=== PATIENT | female | born 1965 | race African-American/Black ===

== ENCOUNTER 2017-12-25 07:29 | Inpatient (IN) | payer OTHER ==
[2017-12-25] MEDS ORDERED: TRANEXAMIC ACID 1000 MG/10 ML VIAL IVPUSH ONE (07:37)
[2017-12-25] MEDS ORDERED: CEFAZOLIN 1 GM/D5W 1 GRAM/50 ML BAG IVPB ONE (07:37)
[2017-12-25] MEDS ORDERED: GABAPENTIN 300 MG CAPSULE (FP) PO ONE (07:37)
[2017-12-25] MEDS ORDERED: oxyCODONE HCL 10 MG SUSTAINED ACTING TABLET PO ONE (07:37)
--- NOTE | 2017-12-25 07:56 | HP ---
Satellite [facility] - Chief Complaint Chief Complaint: right hip pain - Past Medical History Allergies/Adverse Reactions: Allergies Allergy/AdvReac Type Severity Reaction Status Date / Time naproxen Allergy Severe Hives Verified 11/30/17 11:05 - Current Medications Current Medications: Home Medications Medication Instructions Recorded Amlodipine Besylate 10 mg PO DAILY 11/30/17 Ferrous Sulfate 325 mg PO DAILY 11/30/17 Satellite Physical Exam - Physical Examination General Appearance: Well Nourished, Well Developed, Alert & Oriented x3 ENT: Clear Lung: Normal air movement Heart: Regular rate & rhythm Extremities: Other (right hip- + ttp, decr rom, nvi xrays show grade 4 hip djd) Neurological: Intact, Alert, Oriented Satellite Impression/Plan - Impression/Plan Impression: right hip djd Operative Procedure: right florencio thr Date to be Performed: 12/25/17
[2017-12-25] MEDS ORDERED: DEXAMETHASONE SOD PHOSPHATE 4 MG/1 ML VIAL ONE (08:26)
[2017-12-25] MEDS ORDERED: ONDANSETRON 4 MG/2 ML VIAL ONE (08:26)
[2017-12-25] MEDS ORDERED: MIDAZOLAM HCL 2 MG/2 ML SINGLE DOSE VIAL ONE ×3 (08:30→11:50)
[2017-12-25] MEDS ORDERED: KETOROLAC TROMETHAMINE 30 MG/1 ML VIAL ONE (08:45)
[2017-12-25] MEDS ORDERED: ceFAZolin SODIUM 1 GM VIAL ONE ×2 (08:47→10:08)
[2017-12-25] MEDS ORDERED: SODIUM CHLORIDE 0.9% P/F 10 ML VIAL IJ ONE (08:47)
[2017-12-25 08:48] VITALS: BMI 28.4
[2017-12-25] MEDS ORDERED: oxyCODONE HCL 5 MG TABLET PO PRN (09:55)
[2017-12-25] MEDS ORDERED: ONDANSETRON 4 MG/2 ML VIAL IVPUSH PRN ×2 (09:55→12:16)
[2017-12-25] MEDS ORDERED: DEXAMETHASONE SOD PHOSPHATE/PF 10 MG/ML SDV ONE (09:59)
[2017-12-25] MEDS ORDERED: LACTATED RINGERS SOLUTION 1,000 ML IV SCH ×2 (10:00→12:30)
[2017-12-25] MEDS ORDERED: VANCOMYCIN 1,000 MG VIAL (RESTRICTED TO ID ONLY) ONE (10:08)
[2017-12-25] MEDS ORDERED: ePHEDrine SULFATE 50 MG/1 ML AMPULE ONE (11:08)
[2017-12-25] MEDS ORDERED: TRANEXAMIC ACID 1000 MG/10 ML VIAL ONE (11:12)
[2017-12-25] MEDS ORDERED: MAG HYDROX/AL HYDROX/SIMETH 30 ML UNIT-DOSE CUP PO PRN (12:16)
[2017-12-25] MEDS ORDERED: MAGNESIUM HYDROX 2400MG/30ML ORAL SUSPENSION 30 ML CUP PO PRN (12:16)
--- NOTE | 2017-12-25 12:18 | OP ---
Operative Note - Note: Operative Date: 12/25/17 (seymour) Pre-Operative Diagnosis: right hip djd Operation: right florencio thr Post-Operative Diagnosis: Same as Pre-op Surgeon: Andres Frey Keno Terminal Operator: Franki Abbasi Anesthesiologist/PEARL PELLER: Júnior Gallo Anesthesia: Spinal, Local Specimens Removed: femoral head Estimated Blood Loss (mls): 100 Operative Report Dictated: Yes
--- NOTE | 2017-12-25 13:32 | SPEC ---
DATE OF OPERATION: 12/25/2017 PREOPERATIVE DIAGNOSIS: Degenerative joint disease right hip. POSTOPERATIVE DIAGNOSIS: Degenerative joint disease right hip. PROCEDURE PERFORMED: Right total hip replacement with robotic-assisted navigation (MAKOplasty). SURGICAL ATTENDING: Juani Frey MD TIRE AND TUBE REPAIRER: ASHUTOSH Medina ANESTHESIA: Regional and spinal. CLOSURE: PSL Press-Fit Acetabulum, a 32-mm ceramic +4 head, and a number 7 Accolade II Press-Fit stem; number 1 Vicryl for the capsule and fascia, 0-Vicryl and 2-0 Vicryl for subcutaneous, 3-0 V-Loc 90 for skin with skin glue, 4-0 undyed Vicryl for pin sites. ESTIMATED BLOOD LOSS: Less than 100 mL. COMPLICATIONS: None. CONDITION: To the recovery room in stable condition. DESCRIPTION OF PROCEDURE: The patient was taken to the operating room on December 25, 2017. General and regional anesthesia was administered by the anesthesiologist. IV Kefzol and TXA were administered prophylactically prior to the case. The patient was placed in the lateral decubitus position will all prominences well-padded. The right hip area was prepped and draped in the usual sterile fashion. Using 3 small stab incisions over the iliac crest, 3 threaded pins were drilled in power fashion through the 2 tables of the crest. These pins were fastened and the navigation array for the Claude navigation system. Next, a 12 to 15-cm curved longitudinal incision over the posterolateral aspect of the greater trochanter was incised. Hemostasis was achieved with Bovie cautery. Sharp dissection was carried down to level of the fascia. The fascia was opened the entire length of the incision, spreading the fibers of the gluteus chris in the direction of origin. A Charnley retractor was placed in this layer. Care was taken not to impale the sciatic nerve. The short external rotators were detached off the insertion of the greater trochanter and peeled off the capsule. A posterior capsulotomy was then performed. A check point was malleted into the greater trochanter and a point on the inferior pole of the patella was obtained as well. These 2 points were used to assess the preoperative offset and limb lengths of the hip. The hip was then dislocated. The femoral neck was then osteotomized down to the appropriate level as directed by the navigation device. Anterior and posterior retractors were placed, exposing the acetabulum. A circumferential labral excision was performed. A check point was malleted into the acetabulum as well. Multiple sites inside the acetabulum and around the rim were utilized to register the acetabulum with the navigation device. An excellent registration of less than 0.5 mm was obtained. The hip was then reamed with the appropriate reamer down to the appropriate depth, with the appropriate orientation and version as assessed on our preoperative plan for this patient. The reamer was removed and the acetabulum was inspected to have good bleeding surfaces throughout. The real acetabular cup was then malleted down into place, with the holes in the appropriate position, until an excellent fixation was obtained. No screws were necessary. The navigation device ensured appropriate orientation and version, with the depth as predetermined. The appropriate liner was then clipped into place. Attention was directed to the femur. The proximal femur was prepared by use a box chisel, a canal finder and serial broaches until the broach achieved excellent rigidity in the proximal femur with the appropriate version being applied. A calcar planer was used to smooth off the calcar flush with the trial components. A trial reduction with the appropriate head was done, and the hip was reduced. The hip was taken through a range of motion from full extension with external rotation to marked flexion, and was stable at 90 degrees of flexion. It was stable to marked abduction and internal rotation, with a positive hang test and negative telescoping. Limb lengths were ascertained visually as well as with the navigation device to be within the targeted range for this patient. The trial component was removed. The real component was then malleted into place. The head was cold welded to the trunnion, and the hip was reduced. Range of motion, stability and limb lengths were as described in the trial component. Then the hip was pulse antibiotic irrigated. Vancomycin powder was placed in the hip joint. The capsule was closed. The fascia was then closed as well using number 1 Vicryl interrupted suture, 0 and 2-0 subcutaneous, and 3-0 V-Loc for the skin. 4-0 undyed Vicryl was used to close the pin sites after the pins were removed. All check points were also removed. Sterile Aquacel dressing was applied. The patient was awakened from anesthesia and transferred into the supine position. Bilateral SCDs and an abduction pillow were placed. X-rays revealed excellent position of the components. The patient was transferred to the recovery room in stable condition, with no complications. Estimated blood loss was less than 100 mL. JUANI FREY M.D. [id number]
[2017-12-25] MEDS ORDERED: oxyCODONE HCL 5 MG TABLET ONE (14:42)
[2017-12-25] MEDS: ACETAMINOPHEN 325 MG TABLET (FP) PO SCH ×3 (15:13→21:59)
[2017-12-25] MEDS: CEFAZOLIN 1 GM/D5W 1 GM/50 ML BAG IVPB SCH (17:02)
[2017-12-25] MEDS: oxyCODONE HCL 5 MG TABLET PO PRN ×2 (17:03→20:50)
[2017-12-25] MEDS ORDERED: HYDROmorphone HCL CARPU-JECT 2 MG/1 ML DISP.SYRIN IVPB PRN (17:18)
[2017-12-25] MEDS ORDERED: KETOROLAC TROMETHAMINE 30 MG/1 ML VIAL IVPUSH ONE (17:18)
[2017-12-25] MEDS ORDERED: ACETAMINOPHEN 1000 MG/100 ML VIAL (NON FORMULARY) IVPB ONE (17:30)
[2017-12-25] MEDS: oxyCODONE HCL 10 MG SUSTAINED ACTING TABLET PO SCH (21:58)
[2017-12-25] MEDS: SENNOSIDES/DOCUSATE COMBO (SENNA PLUS) TABLET (UD) PO SCH (21:59)
[2017-12-26] MEDS: oxyCODONE HCL 5 MG TABLET PO PRN ×3 (00:19→23:03)
[2017-12-26] MEDS: CEFAZOLIN 1 GM/D5W 1 GM/50 ML BAG IVPB SCH (02:02)
[2017-12-26 08:03] LABS: HEMATOCRIT 31.2 % (32.4-45.2); HEMOGLOBIN 10.4 GM/dl (10.7-15.3); MCH 28.1 pg (25.7-33.7); MCHC 33.2 g/dl (32.0-36.0); MEAN CELL VOLUME 84.6 fl (80-96); MEAN PLT VOLUME 7.1 fl (7.5-11.1); PLATELET COUNT 323 K/MM3 (134-434); RBC 3.68 M/mm3 (3.60-5.2); RDW 13.1 % (11.6-15.6); WHITE BLOOD COUNT 13.2 K/mm3 (4.0-10.8)
[2017-12-26] MEDS: PANTOPRAZOLE 40 MG TABLET (FP) PO SCH (09:12)
[2017-12-26] MEDS: MULTIVITAMINS (DAILY MVI) TABLET (FP) PO SCH (09:12)
[2017-12-26] MEDS: SENNOSIDES/DOCUSATE COMBO (SENNA PLUS) TABLET (UD) PO SCH ×2 (09:13→21:33)
[2017-12-26] MEDS: oxyCODONE HCL 10 MG SUSTAINED ACTING TABLET PO SCH ×2 (09:13→21:32)
[2017-12-26] MEDS: amLODIPine BESYLATE 10 MG TABLET (FP) PO SCH (09:15)
[2017-12-26] MEDS: ACETAMINOPHEN 325 MG TABLET (FP) PO SCH ×4 (09:16→21:32)
[2017-12-26] MEDS: ASPIRIN 325 MG TABLET PO SCH (09:16)
[2017-12-26] MEDS: FERROUS SO4 325 MG TABLET (FP) PO SCH (09:16)
[2017-12-26] MEDS ORDERED: PATIENT'S OWN MEDICATION (NON-FORMULARY) (Ferrous Sulfate [Ferrous Sulfate] 325 MG) PO SCH (10:00)
[2017-12-27] MEDS: oxyCODONE HCL 5 MG TABLET PO PRN ×5 (04:28→20:00)
[2017-12-27] MEDS: ACETAMINOPHEN 325 MG TABLET (FP) PO SCH ×4 (04:28→20:34)
[2017-12-27] MEDS: ASPIRIN 325 MG TABLET PO SCH (08:42)
--- NOTE | 2017-12-27 09:46 | PN ---
Progress Note (short form) - Note Progress Note: AVSS COMFORTABLE BANDAGES DRY AND INTACT CALF SOFT AND NT IMP: DOING WELL PLAN: DC TO HOME TODAY, F/U IN MY OFFICE X 1 WEEK
[2017-12-27] MEDS: amLODIPine BESYLATE 10 MG TABLET (FP) PO SCH (09:58)
[2017-12-27] MEDS: FERROUS SO4 325 MG TABLET (FP) PO SCH (09:58)
[2017-12-27] MEDS: SENNOSIDES/DOCUSATE COMBO (SENNA PLUS) TABLET (UD) PO SCH (09:59)
[2017-12-27] MEDS: PANTOPRAZOLE 40 MG TABLET (FP) PO SCH (09:59)
[2017-12-27] MEDS: oxyCODONE HCL 10 MG SUSTAINED ACTING TABLET PO SCH ×2 (09:59→20:32)
[2017-12-27] MEDS: MULTIVITAMINS (DAILY MVI) TABLET (FP) PO SCH (09:59)
[2017-12-27 14:48] VITALS: BP 116/64; PULSE 78; TEMP 98.8
--- NOTE | 2017-12-31 11:51 | PATH ---
Surgical Pathology Report Patient Name: CINDI BAXTER Med. Rec. #: [id number] /Age/Gender: 1965 (Age: 52) / F Account: [id number] Location: [facility] MED-SURG Taken: 12/25/2017 Received: 12/25/2017 Reported: 12/31/2017 Physicians: Andres Frey M.D. Specimen(s) Received RIGHT FEMORAL HEAD Clinical History Osteoarthritis Final Diagnosis FEMORAL HEAD, RIGHT, TOTAL HIP REPLACEMENT: DEGENERATIVE JOINT DISEASE. Electronically Signed Shruthi Nelson M.D. Gross Description Received in formalin, labeled "right femoral head," is a 4.0 x 4.0 x 2.8 cm. femoral head with a 1.4 cm length portion of femoral neck attached. The margin of resection is smooth. No areas of eburnation are identified. The articular surface is elder-yellow and focally granular. The underlying trabecular bone is yellow and hard. A community service representative section is submitted in one cassette, following decalcification. 12/29/201712/29/2017
== END 2017-12-27 20:15 | disposition home health service (06) | DRG 470 ==
LOC: FM/S 07:29
PROVIDERS: ADMIT Orthopaedic Surgery; ATTEND Orthopaedic Surgery
PROC: 8E0Y0CZ Robotic Assisted Procedure of Lower Extremity, Open Approach (ICD-10-PCS; 2017-12-25)
PROC: 0SR90JA Replacement of Right Hip Joint with Synthetic Substitute, Uncemented, Open Approach (ICD-10-PCS; principal; 2017-12-25 11:18)
DX: M16.11 Unilateral primary osteoarthritis, right hip (principal)
CPT/HCPCS: 36415; 73523-TC-FY; 85027; 88304-TC; 88311-TC; 94760; 97116-GP; 97161-GP

== ENCOUNTER 2018-03-26 06:17 | Inpatient (IN) | payer OTHER ==
[2018-03-23 14:23] VITALS: BMI 28.6
[2018-03-26] MEDS ORDERED: SUCCINYLCHOLINE CHLORIDE 200 MG/10 ML VIAL ONE (06:39)
[2018-03-26] MEDS ORDERED: TRANEXAMIC ACID 1000 MG/10 ML VIAL IVPUSH ONE (07:12)
[2018-03-26] MEDS ORDERED: GABAPENTIN 300 MG CAPSULE (FP) PO ONE (07:12)
[2018-03-26] MEDS ORDERED: CEFAZOLIN 1 GM/D5W 1 GM/50 ML BAG IVPB ONE (07:12)
[2018-03-26] MEDS ORDERED: oxyCODONE HCL 10 MG SUSTAINED ACTING TABLET PO ONE (07:12)
--- NOTE | 2018-03-26 07:56 | HP ---
[facility]ellite [facility] - Chief Complaint Chief Complaint: left hip pain - Past Medical History Allergies/Adverse Reactions: Allergies Allergy/AdvReac Type Severity Reaction Status Date / Time naproxen Allergy Severe Hives Verified 03/26/18 07:53 ...LMP Comment: 2001 - Current Medications Current Medications: Home Medications Medication Instructions Recorded Amlodipine Besylate 10 mg PO DAILY 11/30/17 Aspirin/Omeprazole [Yosprala Dr 1 each PO DAILY 03/23/18 81-40 mg Tablet] Diclofenac Sodium [Solaraze] 100 gm TP ASDIR PRN 03/23/18 Tramadol HCl 50 mg PO ASDIR PRN 03/23/18 Satellite Physical Exam - Physical Examination General Appearance: Well Nourished, Well Developed, Alert & Oriented x3 ENT: Clear Lung: Normal air movement Heart: Regular rate & rhythm Extremities: Other (left hip- + ttp, decr rom, nvi xrays show grade 4 hip djd) Neurological: Intact, Alert, Oriented Satellite Impression/Plan - Impression/Plan Impression: left hip djd Operative Procedure: left florencio thr Date to be Performed: 03/26/18
[2018-03-26] MEDS ORDERED: ONDANSETRON 4 MG/2 ML VIAL IVPUSH PRN ×2 (08:18→11:14)
[2018-03-26] MEDS ORDERED: oxyCODONE HCL 5 MG TABLET PO PRN (08:18)
[2018-03-26] MEDS ORDERED: LACTATED RINGERS SOLUTION 1,000 ML IV SCH ×2 (08:30→11:15)
[2018-03-26] MEDS ORDERED: LIDOCAINE 1% P/F 10 MG/ML VIAL ONE (08:52)
[2018-03-26] MEDS ORDERED: TRANEXAMIC ACID 1000 MG/10 ML VIAL ONE (09:11)
[2018-03-26] MEDS ORDERED: ceFAZolin SODIUM 1 GM VIAL ONE (09:11)
[2018-03-26] MEDS ORDERED: SODIUM CHLORIDE 0.9% P/F 10 ML VIAL IJ ONE (09:11)
[2018-03-26] MEDS ORDERED: PROPOFOL 20 ML ONE ×2 (09:14→10:11)
[2018-03-26] MEDS ORDERED: VANCOMYCIN 1,000 MG VIAL (RESTRICTED TO ID ONLY) IVPB ONE (09:26)
[2018-03-26] MEDS ORDERED: ceFAZolin SODIUM 1 GM VIAL IVPB ONE (09:27)
[2018-03-26] MEDS ORDERED: ePHEDrine SULFATE 50 MG/1 ML AMPULE ONE (10:00)
[2018-03-26] MEDS ORDERED: MAG HYDROX/AL HYDROX/SIMETH 30 ML UNIT-DOSE CUP PO PRN (11:14)
[2018-03-26] MEDS ORDERED: MAGNESIUM HYDROX 2400MG/30ML ORAL SUSPENSION 30 ML CUP PO PRN (11:14)
--- NOTE | 2018-03-26 11:16 | OP ---
Operative Note - Note: Operative Date: 03/26/18 (seymour) Pre-Operative Diagnosis: left hip djd Operation: left florencio thr Post-Operative Diagnosis: Same as Pre-op Surgeon: Andres Frey Pneumatic Press Hand: Franki Abbasi Anesthesiologist/STENCIL CUTTER: Júnior Gallo Anesthesia: Spinal, Local Specimens Removed: femoral head Estimated Blood Loss (mls): 100 Operative Report Dictated: Yes
[2018-03-26] MEDS ORDERED: ACETAMINOPHEN 325 MG TABLET (FP) ONE (12:07)
[2018-03-26] MEDS ORDERED: ACETAMINOPHEN 325 MG TABLET (FP) PO ONE (12:11)
[2018-03-26] MEDS: oxyCODONE HCL 5 MG TABLET PO PRN (15:00)
[2018-03-26] MEDS: ACETAMINOPHEN 325 MG TABLET (FP) PO SCH ×2 (15:00→20:10)
[2018-03-26] MEDS: CEFAZOLIN 2 GM/D5W 2 GM/50 ML ML IVPB SCH (18:48)
[2018-03-26] MEDS: SENNOSIDES/DOCUSATE COMBO (SENNA PLUS) TABLET (UD) PO SCH (21:17)
[2018-03-26] MEDS: oxyCODONE HCL 10 MG SUSTAINED ACTING TABLET PO SCH (21:18)
[2018-03-27] MEDS: oxyCODONE HCL 5 MG TABLET PO PRN ×5 (01:13→23:31)
[2018-03-27] MEDS: ACETAMINOPHEN 325 MG TABLET (FP) PO SCH ×5 (03:15→21:06)
[2018-03-27] MEDS: CEFAZOLIN 2 GM/D5W 2 GM/50 ML ML IVPB SCH (03:19)
[2018-03-27 08:49] LABS: HEMATOCRIT 33.8 % (32.4-45.2); HEMOGLOBIN 10.8 GM/dl (10.7-15.3); MCH 26.6 pg (25.7-33.7); MCHC 32.1 g/dl (32.0-36.0); MEAN CELL VOLUME 82.8 fl (80-96); MEAN PLT VOLUME 7.8 fl (7.5-11.1); PLATELET COUNT 318 K/MM3 (134-434); RBC 4.08 M/mm3 (3.60-5.2); RDW 13.7 % (11.6-15.6); WHITE BLOOD COUNT 13.6 K/mm3 (4.0-10.8)
[2018-03-27] MEDS: oxyCODONE HCL 10 MG SUSTAINED ACTING TABLET PO SCH ×3 (09:31→21:07)
[2018-03-27] MEDS: ASPIRIN 325 MG TABLET PO SCH (09:31)
[2018-03-27] MEDS: SENNOSIDES/DOCUSATE COMBO (SENNA PLUS) TABLET (UD) PO SCH ×2 (09:31→21:06)
[2018-03-27] MEDS: PANTOPRAZOLE 40 MG TABLET (FP) PO SCH (09:31)
[2018-03-27] MEDS: amLODIPine BESYLATE 10 MG TABLET (FP) PO SCH (09:33)
[2018-03-27] MEDS: MULTIVITAMINS (DAILY MVI) TABLET (FP) PO SCH (09:34)
[2018-03-28] MEDS: ACETAMINOPHEN 325 MG TABLET (FP) PO SCH ×3 (02:07→15:47)
[2018-03-28] MEDS: oxyCODONE HCL 5 MG TABLET PO PRN ×4 (06:26→15:15)
[2018-03-28 06:37] VITALS: BP 117/93; PULSE 87; TEMP 98.2
[2018-03-28] MEDS: ASPIRIN 325 MG TABLET PO SCH (08:00)
[2018-03-28] MEDS: amLODIPine BESYLATE 10 MG TABLET (FP) PO SCH (09:23)
[2018-03-28] MEDS: SENNOSIDES/DOCUSATE COMBO (SENNA PLUS) TABLET (UD) PO SCH (09:24)
[2018-03-28] MEDS: oxyCODONE HCL 10 MG SUSTAINED ACTING TABLET PO SCH (09:24)
[2018-03-28] MEDS: PANTOPRAZOLE 40 MG TABLET (FP) PO SCH (09:24)
[2018-03-28] MEDS: MULTIVITAMINS (DAILY MVI) TABLET (FP) PO SCH (09:24)
[2018-03-28 09:42] LABS: HEMATOCRIT 31.3 % (32.4-45.2); HEMOGLOBIN 10.2 GM/dl (10.7-15.3); MCH 26.8 pg (25.7-33.7); MCHC 32.6 g/dl (32.0-36.0); MEAN PLT VOLUME 7.9 fl (7.5-11.1); PLATELET COUNT 306 K/MM3 (134-434); RBC 3.82 M/mm3 (3.60-5.2); RDW 13.7 % (11.6-15.6); WHITE BLOOD COUNT 9.7 K/mm3 (4.0-10.8)
--- NOTE | 2018-03-30 16:27 | PATH ---
Surgical Pathology Report Patient Name: CINDI BAXTER Med. Rec. #: [id number] /Age/Gender: 1965 (Age: 52) / F Account: [id number] Location: [facility] MED-SURG Taken: 03/26/2018 Received: 03/26/2018 Reported: 03/30/2018 Physicians: Andres Frey M.D. Specimen(s) Received LEFT FEMORAL HEAD Clinical History Osteoarthritis left hip Final Diagnosis BONE, FEMORAL HEAD, LEFT, TOTAL HIP REPLACEMENT MAKOPLASTY: BONE WITH DEGENERATIVE JOINT DISEASE, DENSE FIBROCONNECTIVE TISSUE, AND REACTIVE SYNOVIUM. Electronically Signed Janet Whatley M.D. Gross Description Received in formalin labeled "left femoral head," is a 5.5 x 4.5 x 4.0 cm femoral head. There are areas of eburnation present. The remaining articular surfaces are elder-yellow and focally granular. The underlying trabecular bone is yellow and hard. Belt Molder sections are submitted in one cassette, following decalcification. ROE/03/29/2018 nain/03/29/2018
--- NOTE | 2018-04-12 19:48 | SPEC ---
DATE OF OPERATION: 03/26/2018 PREOPERATIVE DIAGNOSIS: Degenerative joint disease left hip. POSTOPERATIVE DIAGNOSIS: Degenerative joint disease left hip. PROCEDURE PERFORMED: Left total hip replacement with robotic-assisted navigation (MAKOplasty). SURGICAL ATTENDING: Juani Frey MD GRADUATE STUDIES DEAN: ASHUTOSH Medina ANESTHESIA: Regional and spinal. CLOSURE: A Tiarra total hip Press-Fit hip system of appropriate size. Closure is 0 Vicryl fascia, 2-0 subcutaneous, and 3-0 Monocryl subcuticular with skin glue for skin, 4-0 undyed Vicryl for pin sites. ESTIMATED BLOOD LOSS: 100 mL COMPLICATIONS: None. CONDITION: To the recovery room in stable condition. DESCRIPTION OF PROCEDURE: The patient was taken to the operating room on March 26, 2018. General and regional anesthesia was administered by the anesthesiologist. IV Kefzol and TXA were administered prophylactically prior to the case. The patient was placed in the lateral decubitus position will all prominences well-padded. The left hip area was prepped and draped in the usual sterile fashion. Using 3 small stab incisions over the iliac crest, 3 threaded pins were drilled in power fashion through the 2 tables of the crest. These pins were fastened and the navigation array for the Claude navigation system. Next, a 12 to 15-cm curved longitudinal incision over the posterolateral aspect of the greater trochanter was incised. Hemostasis was achieved with Bovie cautery. Sharp dissection was carried down to level of the fascia. The fascia was opened the entire length of the incision, spreading the fibers of the gluteus chris in the direction of origin. A Charnley retractor was placed in this layer. Care was taken not to impale the sciatic nerve. The short external rotators were detached off the insertion of the greater trochanter and peeled off the capsule. A posterior capsulotomy was then performed. A check point was malleted into the greater trochanter and a point on the inferior pole of the patella was obtained as well. These 2 points were used to assess the preoperative offset and limb lengths of the hip. The hip was then dislocated. The femoral neck was then osteotomized down to the appropriate level as directed by the navigation device. Anterior and posterior retractors were placed, exposing the acetabulum. A circumferential labral excision was performed. A check point was malleted into the acetabulum as well. Multiple sites inside the acetabulum and around the rim were utilized to register the acetabulum with the navigation device. An excellent registration of less than 0.5 mm was obtained. The hip was then reamed with the appropriate reamer down to the appropriate depth, with the appropriate orientation and version as assessed on our preoperative plan for this patient. The reamer was removed and the acetabulum was inspected to have good bleeding surfaces throughout. The real acetabular cup was then malleted down into place, with the holes in the appropriate position, until an excellent fixation was obtained. No screws were necessary. The navigation device ensured appropriate orientation and version, with the depth as predetermined. The appropriate liner was then clipped into place. Attention was directed to the femur. The proximal femur was prepared by use a box chisel, a canal finder and serial broaches until the broach achieved excellent rigidity in the proximal femur with the appropriate version being applied. A calcar planer was used to smooth off the calcar flush with the trial components. A trial reduction with the appropriate head was done, and the hip was reduced. The hip was taken through a range of motion from full extension with external rotation to marked flexion, and was stable at 90 degrees of flexion. It was stable to marked abduction and internal rotation, with a positive hang test and negative telescoping. Limb lengths were ascertained visually as well as with the navigation device to be within the targeted range for this patient. The trial component was removed. The real component was then malleted into place. The head was cold welded to the trunnion, and the hip was reduced. Range of motion, stability and limb lengths were as described in the trial component. Then the hip was pulse antibiotic irrigated. Vancomycin powder was placed in the hip joint. The capsule was closed. The fascia was then closed as well using number 0 Vicryl, 2-0 subcutaneous, and 3-0 Monocryl subcuticular with skin glue for skin. 4-0 undyed Vicryl was used to close the pin sites after the pins were removed. All check points were also removed. Sterile Aquacel dressing was applied. The patient was awakened from anesthesia and transferred into the supine position. Bilateral SCDs and an abduction pillow were placed. X-rays revealed excellent position of the components. The patient was transferred to the recovery room in stable condition, with no complications. Estimated blood loss was 100 mL. UJANI FREY M.D. [id number]
== END 2018-03-28 17:00 | disposition home health service (06) | DRG 470 ==
LOC: FM/S 06:17
PROVIDERS: ADMIT Orthopaedic Surgery; ATTEND Orthopaedic Surgery
PROC: 8E0Y0CZ Robotic Assisted Procedure of Lower Extremity, Open Approach (ICD-10-PCS; 2018-03-26)
PROC: 0SRB0JA Replacement of Left Hip Joint with Synthetic Substitute, Uncemented, Open Approach (ICD-10-PCS; principal; 2018-03-26 09:30)
DX: M16.12 Unilateral primary osteoarthritis, left hip (principal)
CPT/HCPCS: 36415; 73523-TC-FY; 85027; 86803; 87389; 88304-TC; 88311-TC; 94760; 97116-GP; 97161-GP

== ENCOUNTER → 2020-12-05 | Day surgery (SDC) | payer OTHER | END | disposition home or self-care (01) | LOC: JMAMMO-SUR 11:27 → MERGE 11:27 | PROVIDERS: ATTEND Family Medicine | PROC: 0H9U3ZX Drainage of Left Breast, Percutaneous Approach, Diagnostic (ICD-10-PCS; principal; 2020-12-05) | DX: D05.12 Intraductal carcinoma in situ of left breast (principal); Z17.0 Estrogen receptor positive status [ER+] | CPT/HCPCS: 19083; 77065-TC; 87899; A4648 ==

== ENCOUNTER → 2020-12-20 | Day surgery (SDC) | payer OTHER | END | disposition home or self-care (01) | LOC: FMAMMOTONE 10:22 | PROVIDERS: ATTEND Family Medicine | PROC: 0H9U3ZX Drainage of Left Breast, Percutaneous Approach, Diagnostic (ICD-10-PCS; principal; 2020-12-20) | DX: D05.12 Intraductal carcinoma in situ of left breast (principal) | CPT/HCPCS: 19081; 76098-TC-FY; 87899; 88305-TC; A4648 ==

== ENCOUNTER 2021-03-05 05:26 | Day surgery (SDC) | payer OTHER ==
[2021-02-28 12:54] VITALS: BMI 35.5
[2021-03-05] MEDS ORDERED: LIDOCAINE HCL 1%, 10 MG/ML (20ML VIAL) ONE (14:49)
[2021-03-05] MEDS ORDERED: BUPIVACAINE HCL 50 ML ONE (14:49)
[2021-03-05] MEDS ORDERED: PROPOFOL 20 ML ONE (15:25)
[2021-03-05] MEDS ORDERED: ceFAZolin SODIUM 1 GM VIAL ONE (15:25)
[2021-03-05] MEDS ORDERED: DEXAMETHASONE SOD PHOSPHATE 4 MG/1 ML VIAL ONE (15:25)
[2021-03-05] MEDS ORDERED: MIDAZOLAM HCL 2 MG/2 ML SINGLE DOSE VIAL ONE (15:26)
[2021-03-05] MEDS ORDERED: ONDANSETRON 4 MG/2 ML VIAL IVPUSH PRN (15:40)
[2021-03-05] MEDS ORDERED: oxyCODONE HCL 5 MG TABLET PO PRN ×2 (15:40)
[2021-03-05] MEDS ORDERED: LACTATED RINGERS SOLUTION 1,000 ML IV SCH (15:45)
[2021-03-05] MEDS ORDERED: ISOSULFAN BLUE 50 MG/5 ML VIAL SQ ONE (15:47)
[2021-03-05] MEDS ORDERED: ceFAZolin SODIUM 1 GM VIAL IVPB ONE (16:05)
[2021-03-05 19:11] VITALS: BP 148/70; PULSE 82; TEMP 97.2
== END 2021-03-05 19:00 | disposition home or self-care (01) ==
LOC: JASU-SURG 05:26
PROVIDERS: ATTEND Surgery
PROC: C71L1ZZ Planar Nuclear Medicine Imaging of Upper Chest Lymphatics using Technetium 99m (Tc-99m) (ICD-10-PCS; 2021-03-05)
PROC: 0HBU0ZZ Excision of Left Breast, Open Approach (ICD-10-PCS; principal; 2021-03-05 13:00)
PROC: 07B60ZX Excision of Left Axillary Lymphatic, Open Approach, Diagnostic (ICD-10-PCS; 2021-03-05 13:00)
DX: C50.912 Malignant neoplasm of unspecified site of left female breast (principal)
CPT/HCPCS: 19281; 19282; 76098-TC-FY; 78195-TC; 88305-TC; 88307-TC; 94760; A9541

== ENCOUNTER 2021-04-30 04:20 | Day surgery (SDC) | payer OTHER ==
[2021-04-25 15:01] VITALS: BMI 35.5
[2021-04-30] MEDS ORDERED: LIDOCAINE HCL 1%, 10 MG/ML (20ML VIAL) ONE (12:47)
[2021-04-30] MEDS ORDERED: ONDANSETRON 4 MG/2 ML VIAL IVPUSH PRN (12:55)
[2021-04-30] MEDS ORDERED: oxyCODONE HCL 5 MG TABLET PO PRN (12:55)
[2021-04-30] MEDS ORDERED: LACTATED RINGERS SOLUTION 1,000 ML IV SCH (13:00)
[2021-04-30] MEDS ORDERED: MIDAZOLAM HCL 2 MG/2 ML SINGLE DOSE VIAL ONE (13:18)
[2021-04-30] MEDS ORDERED: ceFAZolin 2 GRAM PREMIX BAG IVPB ONE (13:22)
[2021-04-30] MEDS ORDERED: SUCCINYLCHOLINE CHLORIDE 200 MG/10 ML SYRINGE ONE (13:22)
[2021-04-30] MEDS ORDERED: PROPOFOL 20 ML ONE ×2 (13:22)
[2021-04-30] MEDS ORDERED: DEXAMETHASONE SOD PHOSPHATE 4 MG/1 ML VIAL ONE (13:32)
[2021-04-30] MEDS ORDERED: ceFAZolin SODIUM 1 GM VIAL ONE (13:32)
[2021-04-30] MEDS ORDERED: LIDOCAINE HCL 1%, 10 MG/ML (20ML VIAL) INF ONE ×2 (13:41)
[2021-04-30 16:53] VITALS: BP 148/86; PULSE 92; TEMP 98.3
== END 2021-04-30 16:45 | disposition home or self-care (01) ==
LOC: JASU-SURG 04:20
PROVIDERS: ATTEND Surgery
PROC: 0HBU0ZZ Excision of Left Breast, Open Approach (ICD-10-PCS; principal; 2021-04-30 12:30)
DX: C50.212 Malignant neoplasm of upper-inner quadrant of left female breast (principal)
CPT/HCPCS: 94760

== ENCOUNTER 2021-12-30 08:53 | Day surgery (SDC) | payer OTHER ==
[2021-12-30] MEDS ORDERED: ZOLEDRONIC ACID/MAN/WATER 5 MG/100 ML INFUS..BTL IVPB ONE (10:00)
[2021-12-30 18:35] VITALS: BP 127/77; PULSE 76; TEMP 98.1
== END 2021-12-30 12:10 | disposition home or self-care (01) ==
LOC: JONCCHEMO 08:53
PROVIDERS: ATTEND Internal Medicine Hematology & Oncology
PROC: 3E033GC Introduction of Other Therapeutic Substance into Peripheral Vein, Percutaneous Approach (ICD-10-PCS; principal; 2021-12-30)
DX: C50.512 Malignant neoplasm of lower-outer quadrant of left female breast (principal); M85.80 Other specified disorders of bone density and structure, unspecified site; Z76.89 Persons encountering health services in other specified circumstances
CPT/HCPCS: 96365; J3489

== ENCOUNTER 2023-02-06 11:31 | Day surgery (SDC) | payer OTHER ==
[~2023-02-06 11:31] MED LIST: ZOLEDRONIC ACID/MAN/WATER 5 MG/100 ML INFUS..BTL IVPB ONE
[2023-02-06 14:24] VITALS: BP 142/80; PULSE 70; RESP 20; TEMP 98.4
== END 2023-02-06 12:35 | disposition home or self-care (01) ==
LOC: JONCCHEMO 11:31 → J7W 11:34 → JONCCHEMO 12:35
PROVIDERS: ATTEND Internal Medicine Hematology & Oncology
PROC: 3E033GC Introduction of Other Therapeutic Substance into Peripheral Vein, Percutaneous Approach (ICD-10-PCS; principal; 2023-02-06)
DX: C50.912 Malignant neoplasm of unspecified site of left female breast (principal); Z17.0 Estrogen receptor positive status [ER+]; M85.88 Other specified disorders of bone density and structure, other site; M87.9 Osteonecrosis, unspecified
CPT/HCPCS: 96365; J3489